=== PATIENT | female | born 1945 | race Two or more races ===

== ENCOUNTER 2020-05-01 14:04 | Inpatient (IN) | payer OTHER ==
[~2020-05-01] VITALS: Ht 152.4 cm; Wt 38.6 kg
[2020-05-03] MEDS ORDERED: RESTORIL30 MG (08:09)
[2020-05-06] MEDS ORDERED: INTESTINEX680 M1 PO (16:28)
[2020-05-06] MEDS ORDERED: PROTONIX40 MG PO (16:28)
== END 2020-05-06 17:11 | disposition home or self-care (01) | DRG 392 ==
LOC: ER 14:04 → MEDI 05-02 09:48
PROVIDERS: ADMIT Internal Medicine; ATTEND Internal Medicine
PROC: BW21YZZ Computerized Tomography (CT Scan) of Abdomen and Pelvis using Other Contrast (ICD-10-PCS; principal; 2020-05-01)
DX: K57.20 Diverticulitis of large intestine with perforation and abscess without bleeding (principal); Z20.822 Contact with and (suspected) exposure to COVID-19; M81.8 Other osteoporosis without current pathological fracture; G20 Parkinson's disease

== ENCOUNTER 2021-07-03 09:40 | Emergency (ER) | payer OTHER ==
[~2021-07-03] VITALS: Ht 154.9 cm; Wt 37.2 kg
[~2021-07-03 09:40] MED LIST: INTESTINEX680 M1 PO; PROTONIX40 MG PO; RESTORIL30 MG
[2021-07-03] MEDS ORDERED: ESCITALOPRAM OX10 MG PO (10:08)
[2021-07-03] MEDS ORDERED: CARBIDOPA-LEVO1 EAC9 PO (10:09)
== END 2021-07-03 13:49 | disposition home or self-care (01) ==
LOC: ER 09:40
DX: K52.9 Noninfective gastroenteritis and colitis, unspecified (principal); Z20.822 Contact with and (suspected) exposure to COVID-19

== ENCOUNTER 2021-08-12 12:44 | Emergency (ER) | payer OTHER ==
[~2021-08-12] VITALS: Ht 154.9 cm; Wt 35.4 kg
[~2021-08-12 12:44] MED LIST changes: +CARBIDOPA-LEVO1 EAC9 PO; +ESCITALOPRAM OX10 MG PO
[2021-08-12] MEDS ORDERED: TEMAZEPAM30 MG PO (13:35)
[2021-08-12] MEDS ORDERED: CLONAZEPAM1 MG PO (13:35)
[2021-08-12] MEDS ORDERED: CARBIDOPA-LEVO1 EAC9 (13:36)
== END 2021-08-12 17:33 | disposition home or self-care (01) ==
LOC: ER 12:44
DX: U07.1 COVID-19 (principal); B34.9 Viral infection, unspecified; Z88.6 Allergy status to analgesic agent; G20 Parkinson's disease; R09.81 Nasal congestion; Z20.822 Contact with and (suspected) exposure to COVID-19

== ENCOUNTER 2021-08-16 12:20 | Outpatient (CLI) | payer OTHER ==
[~2021-08-16 12:20] MED LIST changes: +CARBIDOPA-LEVO1 EAC9; +CLONAZEPAM1 MG PO; +TEMAZEPAM30 MG PO
== END 2021-08-16 12:40 | disposition home or self-care (01) ==
LOC: ASH CLINIC 12:20
PROVIDERS: ATTEND Emergency Medicine
DX: U07.1 COVID-19 (principal)

== ENCOUNTER 2021-09-20 10:43 | Emergency (ER) | payer OTHER ==
[~2021-09-20] VITALS: Ht 165.1 cm; Wt 33.1 kg
[2021-09-20] MEDS ORDERED: RESTORIL30 M1 PO (11:00)
[2021-09-20] MEDS ORDERED: OMEPRAZOLE MAGN20 MG PO (11:01)
[2021-09-20] MEDS ORDERED: CARBIDOPA-LEVO1 EAC3 PO (11:01)
== END 2021-09-20 18:21 | disposition home or self-care (01) ==
LOC: ER 10:43
DX: K57.90 Diverticulosis of intestine, part unspecified, without perforation or abscess without bleeding (principal); Z88.6 Allergy status to analgesic agent

== ENCOUNTER 2022-06-16 15:41 | Emergency (ER) | payer OTHER ==
[~2022-06-16] VITALS: Ht 157.5 cm; Wt 31.8 kg
[~2022-06-16 15:41] MED LIST changes: +CARBIDOPA-LEVO1 EAC3 PO; +OMEPRAZOLE MAGN20 MG PO; +RESTORIL30 M1 PO
== END 2022-06-16 18:29 | disposition home or self-care (01) ==
LOC: ER 15:41
DX: R07.0 Pain in throat (principal); Z88.6 Allergy status to analgesic agent

== ENCOUNTER 2023-01-16 15:37 | Emergency (ER) | payer OTHER ==
[~2023-01-16] VITALS: Ht 152.4 cm; Wt 32.7 kg
[2023-01-16 17:07] LABS: HEMATOCRIT 33.7 % (36.0-45.00); MEAN CELL VOLUME 93.6 fL (80.00-100.00); MEAN CORPUSCULAR HEMOGLOBIN 30.6 pg (27.00-32.0); MEAN CORPUSCULAR HGB CONC 32.7 g/dl (32.0-36.0); PLATELET COUNT 271 K/uL (150-450); RED CELL DISTRIBUTION WIDTH 12.7 % (11.5-14.5)
[2023-01-16 17:16] LABS: PH,URINE 7.5 (5.0-8.0); URINE APPEARANCE Clear; URINE BACTERIA 26.4 uL (0.0-1933); URINE BILIRRUBIN Negative (NEGATIVE); URINE BLOOD Moderate; URINE COLOR Yellow; URINE EPITHELIAL CELLS 3.3 uL (0.0-38.8); URINE GLUCOSE Negative (NEGATIVE); URINE LEUKOCYTE Negative; URINE NITRATE Negative; URINE PROTEIN Negative (NEGATIVE); URINE RBC 184.3 uL (0.0-20.8); URINE UROBILINOGEN 0.2 E.U./dl
[2023-01-16 17:29] LABS: CALCIUM 9.2 mg/dL (8.5-10.1); CREATININE SERUM 0.77 mg/dL (0.55-1.02); GFR 72.31; POTASSIUM 4.43 mEq/L (3.5-5.1)
[2023-01-17] MEDS ORDERED: PEPCID40 MG PO (03:22)
[2023-01-17] MEDS ORDERED: CIPRO500 MG PO (03:22)
[2023-01-17] MEDS ORDERED: METRONIDAZOLE500 MG PO (03:22)
[2023-01-17] MEDS ORDERED: ONDANSETRON ODT4 MG PO (03:22)
== END 2023-01-17 03:31 | disposition home or self-care (01) ==
LOC: ER 15:37
PROVIDERS: Emergency Medicine
DX: K57.30 Diverticulosis of large intestine without perforation or abscess without bleeding (principal); Z88.6 Allergy status to analgesic agent; G20.A1 Parkinson's disease without dyskinesia, without mention of fluctuations
CPT/HCPCS: 36415; 74176; 96365; 99284; J0744; J3490

== ENCOUNTER 2024-02-04 15:10 | Emergency (ER) | payer OTHER ==
[~2024-02-04] VITALS: Ht 152.4 cm; Wt 31.8 kg
[~2024-02-04 15:10] MED LIST changes: +CIPRO500 MG PO; +METRONIDAZOLE500 MG PO; +ONDANSETRON ODT4 MG PO; +PEPCID40 MG PO
[2024-02-04] MEDS ORDERED: LEVALBUTEROL HCL 1.25 MG/3 ML SOLUTION IH STA (17:50)
[2024-02-04 18:05] LABS: HEMATOCRIT 34.8 % (36.0-45.00); HEMOGLOBIN 11.4 g/dL (12.0-15.00); MEAN CORPUSCULAR HEMOGLOBIN 30.9 pg (27.00-32.0); MEAN CORPUSCULAR HGB CONC 32.9 g/dl (32.0-36.0); PLATELET COUNT 330 K/uL (150-450); RED CELL DISTRIBUTION WIDTH 12.6 % (11.5-14.5)
== END 2024-02-04 20:56 | disposition home or self-care (01) ==
LOC: ER 15:12
PROVIDERS: General Practice
DX: R05.9 Cough, unspecified (principal)

== ENCOUNTER 2024-10-02 14:21 | Emergency (ER) | payer OTHER ==
[~2024-10-02] VITALS: Ht 154.9 cm; Wt 40.8 kg
[2024-10-02] MEDS ORDERED: RESTORIL7.5 MG (14:28)
[2024-10-02] MEDS ORDERED: SINEMET 10-1001 EACH (14:28)
[2024-10-02] MEDS ORDERED: PROTONIX40 MG (14:28)
[2024-10-02] MEDS ORDERED: 0.9 % SODIUM CHLORIDE 1,000 ML IV ONE (16:45)
[2024-10-02] MEDS ORDERED: FAMOtidine 10 MG/ML (4ML VIAL) IV ONE (16:45)
[2024-10-02] MEDS ORDERED: KETOROLAC TROMETHAMINE 30 MG VIAL IV ONE (16:45)
[2024-10-02 17:17] LABS: BASO % 0.5 % (0.1-1.2); EOS # 0.14 (0.04-0.54); EOS % 2.2 % (0.7-7.0); LYMPH # 1.13 (1.18-3.74); LYMPH % 17.9 % (19.3-53.1); MEAN PLATELET VOLUME 9.20 fl (9.4-12.4); MONO # 0.54 (0.24-0.82); MONO % 8.6 % (4.7-12.5); NEUT # 4.44 (1.56-6.13); NEUT % 70.5 % (34.0-71.1); RED CELL DISTRIBUTION WIDTH 11.9 % (11.6-14.4)
[2024-10-02 17:38] LABS: INR 1.06
[2024-10-02 17:42] LABS: ALT/SGPT 11.0 U/L (12-78); AST/SGOT 19.0 U/L (15-37); BILIRUBIN TOTAL 0.4 mg/dL (0.3-1.2); BUN CREA RATIO 38.0 (7.0-25.0); CREATININE SERUM 0.76 mg/dL (0.55-1.02); GFR 73.04; GLOBULINA 3.0 G/DL (2.4-3.5); GLUCOSE FASTING 137.0 mg/dL (65-100); OSMOLALITY SERUM 293.0 MOSM/KG (275-295)
[2024-10-02 17:50] LABS: COVID-19 AG NEGATIVE (NEGATIVE)
[2024-10-02 21:42] LABS: URINE APPEARANCE Clear; URINE BILIRRUBIN Negative (NEGATIVE); URINE BLOOD Small; URINE COLOR Yellow; URINE GLUCOSE Negative (NEGATIVE); URINE KETONE Trace (NEGATIVE); URINE LEUKOCYTE Negative; URINE NITRATE Negative; URINE PROTEIN Negative (NEGATIVE); URINE UROBILINOGEN 1.0 E.U./dl
[2024-10-02 21:43] LABS: URINE BACTERIA 16.7 uL (0.0-1933); URINE EPITHELIAL CELLS 2.6 uL (0.0-38.8); URINE RBC 229.6 uL (0.0-20.8); URINE WBC 2.3 uL (0.0-23.2)
[2024-10-02 21:49] LABS: URINE CAST 0.58 uL (0.0-1.40)
[2024-10-02 22:06] VITALS: BP 125/71; O2SAT 99
== END 2024-10-02 22:13 | disposition home or self-care (01) ==
LOC: ER
PROVIDERS: General Practice
DX: E86.0 Dehydration (principal); R10.9 Unspecified abdominal pain; R22.1 Localized swelling, mass and lump, neck; R42 Dizziness and giddiness; R53.1 Weakness; Z20.822 Contact with and (suspected) exposure to COVID-19
CPT/HCPCS: 36415; 70491; 71045; 74176; 96365; 96366; 99284; J1885; J3490; J7030; Q9965